=== PATIENT | male | born 1980 | race Two or more races ===

== ENCOUNTER 2024-01-12 13:49 | Emergency (ER) | payer MEDICAID, OTHER ==
[~2024-01-12] VITALS: Ht 175.3 cm; Wt 68.0 kg
[2024-01-12 14:20] VITALS: BP 129/85; PULSE 105; RESP 18; TEMP 99.1; O2SAT 97
[2024-01-12] MEDS ORDERED: INDO50CA82 PO (15:06)
[2024-01-12] MEDS ORDERED: COLC1CAP PO (15:06)
[2024-01-12] MEDS: methylPREDNISolone SOD SUCC 125 MG/2 ML VL IM ONE (15:19)
[2024-01-12] MEDS: KETOROLAC TROMETH 60MG/2ML VIAL IM ONE (15:19)
== END 2024-01-12 15:44 | disposition home or self-care (01) ==
LOC: ER 13:49
DX: M10.9 Gout, unspecified (principal); M25.562 Pain in left knee; M25.561 Pain in right knee
CPT/HCPCS: 96372; 99284; J1885; J2930